=== PATIENT | female | born 1965 | race Caucasian/White ===

== ENCOUNTER 2018-06-19 22:37 | Emergency (ER) | payer BC ==
--- NOTE | 2018-06-19 22:51 | ED.PDOC ---
History of Present Illness - General Chief Complaint: Bite: Animal/Insect/Human Stated Complaint: dog bite Time Seen by Provider: 06/19/18 22:50 Source: patient, Vital Signs reviewed Exam Limitations: no limitations Additional Information: 52 YEAR OLD HERE FOR EVALUATION OF DOG BITE TONIGHT BY HER FAMILY PET DOG SHE HAS A BITE NITESH OVER THE LEFT THUMB BASE NO OTHER INJURY SHE HAS NO HEALTH ISSUES SHE HAS ALLERGY TO PCN LAST TET MORE THAN 5 YEARS - History of Present Illness Timing/Duration: 4-6 hours Severity: mild Improving Factors: nothing Worsening Factors: nothing Associated Symptoms: denies symptoms Home Medications: Ambulatory Orders Clindamycin HCl [Cleocin] 300 mg PO Q6H #40 cap 06/19/18 Review of Systems - Review of Systems Constitutional: States: no symptoms reported EENTM: States: no symptoms reported Respiratory: States: no symptoms reported Cardiology: States: no symptoms reported Gastrointestinal/Abdominal: States: no symptoms reported Genitourinary: States: no symptoms reported Musculoskeletal: States: no symptoms reported Skin: States: no symptoms reported Neurological: States: no symptoms reported Endocrine: States: no symptoms reported Hematologic/Lymphatic: States: no symptoms reported Physical Exam - Physical Exam General Appearance: Alert, Comfortable Eye Exam: bilateral normal Ears, Nose, Throat: hearing grossly normal, normal ENT inspection, normal pharynx Neck: non-tender, full range of motion, supple Respiratory: chest non-tender, lungs clear, normal breath sounds Cardiovascular/Chest: normal peripheral pulses, regular rate, rhythm, no edema, no gallop, no JVD Gastrointestinal/Abdominal: normal bowel sounds, non tender, soft Extremity: normal range of motion, non-tender, other - HAS A PUNCTURE WOUND LOCATION DORSUM BASE OF LEFT THUMB NO NEUROVASCULAR OR TENDON INJURY Neurologic: snuff blender II-XII nml as tested, no motor/sensory deficits, alert, normal mood/affect, oriented x 3 Departure - Departure Clinical Impression: Bite wound, Dog bite of extremity Time of Disposition: 23:02 Disposition: Discharge to Home or Self Care Condition: Good Departure Forms: ED Discharge - Pt. Copy, Patient Portal Self Enrollment Instructions: DI for Animal Bites Diet: regular diet Home Medications: Ambulatory Orders Clindamycin HCl [Cleocin] 300 mg PO Q6H #40 cap 06/19/18
[2018-06-19] MEDS ORDERED: TETANUS,DIPHTHERIA,PERTUSSIS 1 EA SYG IM ONE (23:00)
[2018-06-19] MEDS ORDERED: CLINDAMYCIN HCL CAP 150 MG CAP PO ONE (23:01)
[2018-06-19 23:57] VITALS: BP 169/100; TEMP 98.2; O2SAT 97
== END 2018-06-20 | disposition home or self-care (01) ==
LOC: ER 22:37
DX: S61.052A Open bite of left thumb without damage to nail, initial encounter (principal); W54.0XXA Bitten by dog, initial encounter; Y92.9 Unspecified place or not applicable; Z23 Encounter for immunization